=== PATIENT | male | born 1970 | race Caucasian/White ===

== ENCOUNTER 2016-07-05 18:31 | Emergency (ER) | payer OTHER ==
[~2016-07-05] VITALS: Ht 185.4 cm; Wt 72.7 kg
[2016-07-05] MEDS ORDERED: PROMETHAZINE HC25 M1 PO (19:11)
[2016-07-05] MEDS ORDERED: DILAUDID4 MG PO (19:12)
[2016-07-05] MEDS ORDERED: ZOFRAN ODT8 MG PO (19:12)
[2016-07-05] MEDS ORDERED: NOVOLOG 10100 UNITS/ SC (19:13)
[2016-07-05] MEDS ORDERED: PROTONIX40 MG PO (19:13)
[2016-07-05] MEDS ORDERED: LANTUS 10100 UNITS/ SC (19:14)
[2016-07-05 22:14] VITALS: BP 138/67
== END 2016-07-05 22:21 | disposition home or self-care (01) ==
LOC: EME 18:31
DX: R10.30 Lower abdominal pain, unspecified (principal); E11.43 Type 2 diabetes mellitus with diabetic autonomic (poly)neuropathy; K31.84 Gastroparesis; Z79.4 Long term (current) use of insulin; F17.200 Nicotine dependence, unspecified, uncomplicated; Z96.89 Presence of other specified functional implants
CPT/HCPCS: 74020; 99281; 99284; J2270